=== PATIENT | female | born 1965 | race Caucasian/White ===

== ENCOUNTER 2017-08-03 06:28 | Day surgery (SDC) | payer BC, OTHER ==
[2017-08-01 12:11] VITALS: BMI 24.2
[2017-08-03] MEDS ORDERED: ONDANSETRON 4 MG/2 ML VIAL ONE ×2 (06:44→08:43)
[2017-08-03] MEDS ORDERED: KETOROLAC TROMETHAMINE 30 MG/1 ML VIAL ONE ×2 (06:44→08:43)
[2017-08-03] MEDS ORDERED: SUCCINYLCHOLINE CHLORIDE 200 MG/10 ML VIAL ONE (06:44)
[2017-08-03] MEDS ORDERED: LIDOCAINE HCL/PF 2% SDV 5ML VIAL ONE ×2 (06:44→08:43)
[2017-08-03] MEDS ORDERED: DEXAMETHASONE SOD PHOSPHATE 4 MG/1 ML VIAL ONE ×2 (06:44→08:43)
[2017-08-03] MEDS ORDERED: ROCURONIUM BROMIDE 50 MG/5 ML VIAL ONE ×3 (06:44→08:43)
[2017-08-03] MEDS ORDERED: oxyCODONE HCL 5 MG TABLET PO PRN ×2 (07:19)
[2017-08-03] MEDS ORDERED: ONDANSETRON 4 MG/2 ML VIAL IVPUSH PRN ×2 (07:19→11:07)
[2017-08-03] MEDS ORDERED: LACTATED RINGERS SOLUTION 1,000 ML IV SCH ×2 (07:30→11:15)
[2017-08-03] MEDS ORDERED: ceFAZolin SODIUM 1 GM VIAL ONE (07:44)
[2017-08-03] MEDS ORDERED: GENTAMICIN SO4 80 MG/2 ML VIAL ONE ×2 (07:44→08:01)
[2017-08-03] MEDS ORDERED: VANCOMYCIN 1,000 MG VIAL (RESTRICTED TO ID ONLY) ONE (07:44)
[2017-08-03] MEDS ORDERED: BUPIVACAINE HCL/EPINEPHRINE/PF 30 ML VIAL IJ ONE (07:45)
[2017-08-03] MEDS ORDERED: LIDOCAINE HCL 1%, 10 MG/ML (20ML VIAL) ONE (07:45)
[2017-08-03] MEDS ORDERED: EPINEPHrine/PF 1 MG/1 ML (1:1,000) AMPULE ONE ×2 (07:46→08:02)
[2017-08-03] MEDS ORDERED: SODIUM CHLORIDE 0.9% P/F 10 ML VIAL IJ ONE (07:49)
[2017-08-03] MEDS ORDERED: MIDAZOLAM HCL 2 MG/2 ML SINGLE DOSE VIAL ONE (08:14)
[2017-08-03] MEDS ORDERED: PROPOFOL 20 ML ONE ×3 (08:18→08:28)
[2017-08-03] MEDS ORDERED: NEOSTIGMINE METHYLSULFATE 0.5 MG/ML - 10 ML MDV ONE (08:37)
[2017-08-03] MEDS ORDERED: GLYCOPYRROLATE 0.2 MG/1 ML VIAL ONE (08:37)
[2017-08-03] MEDS ORDERED: BUPIVACAINE 0.25% /EPI 1:200,000 10 ML VIAL NR ONE (08:41)
[2017-08-03] MEDS ORDERED: PHENYLEPHRINE HCL 10 MG/1 ML SINGLE DOSE VIAL ONE ×2 (09:02→10:13)
[2017-08-03] MEDS ORDERED: ePHEDrine SULFATE 50 MG/1 ML AMPULE ONE (09:08)
[2017-08-03] MEDS ORDERED: ACETAMINOPHEN 325 MG TABLET (FP) PO PRN (11:07)
[2017-08-03] MEDS ORDERED: oxyCODONE HCL 5 MG TABLET ONE (12:39)
[2017-08-03] MEDS ORDERED: oxyCODONE HCL 5 MG TABLET PO ONE (12:46)
[2017-08-03 13:32] VITALS: BP 121/74; PULSE 74; TEMP 98.2
--- NOTE | 2017-08-04 15:15 | OP ---
DATE OF OPERATION: 08/03/2017 PREOPERATIVE DIAGNOSES: 1. Personal history of breast cancer. 2. Acquired absence of bilateral breasts and nipples. 3. Bilateral breast/chest wall deformity. 4. Right breast capsular contracture. POSTOPERATIVE DIAGNOSES: 1. Personal history of breast cancer. 2. Acquired absence of bilateral breasts and nipples. 3. Bilateral breast/chest wall deformity. 4. Right breast capsular contracture. PROCEDURES: 1. Removal of right breast implant with open periprosthetic capsulectomy. 2. Immediate insertion of right breast implant (Allergan 410, style LX, 455 mL). 3. Insertion of AlloDerm acellular dermal matrix to right breast inferior pole for soft tissue reinforcement. 4. Subcutaneous tissue transfer from abdomen and bilateral flanks to bilateral breasts/chest wall deformities. ATTENDING SURGEON: Holger Thompson MD ANESTHESIA: General endotracheal. ESTIMATED BLOOD LOSS: 20 mL. SPECIMEN: Right breast capsule to Pathology. DRAINS: None. COMPLICATIONS: None. CONDITION: Stable, to recovery room, extubated. INDICATIONS: The patient is a 51-year-old female with a history of right breast cancer who has previously undergone bilateral skin-sparing mastectomies and implant-based reconstruction. The patient received adjuvant radiation therapy to the right breast and has subsequently developed a capsular contracture. This has progressed and has become painful and therefore the patient is brought to the operating room today for a capsulectomy and implant exchange, as well as subcutaneous tissue transfer to bilateral breasts. The risks, benefits and alternatives of the surgery were discussed with the patient and her in detail and all questions were answered. The risks include, but are not limited to, bleeding, infection, pain, need for revision or further surgery, residual breast asymmetry, damage to neighboring structures including nerves, arteries, veins, and tendons, recurrence of capsular contracture. The patient understands these risks and has elected to proceed with surgery. The procedure is as follows. After proper identification and marking the patient in the preoperative holding area, the patient was transported to the operating room and placed supine on the table. All noninvasive anesthesia monitors were applied. Intravenous access was established. General anesthesia was administered and the patient was intubated without difficulty. SCD boots were applied to bilateral extremities. Intravenous antibiotics were then given. The patient's bilateral breasts, as well as abdomen, and flanks were then prepped and draped in the usual sterile fashion. After a timeout was performed, the inframammary fold marking on the right side was infiltrated with 0.25% Marcaine with 1:200,000 units of epinephrine. The same local anesthetic solution was then infiltrated into the lower end of the umbilicus, as well as along bilateral flanks in preparation for infiltration of tumescent solution. A number-15 blade was used to make stab incisions in the lower end of the umbilicus, as well as along bilateral inguinal regions. The standard tumescent solution was then infiltrated into the subcutaneous tissue of the abdomen and bilateral flanks. A total of 1 L of tumescent solution was infiltrated. While this was given time to take effect, attention was turned toward the right breast. The inframammary fold incision was made with a number-15 blade. This was carried down through the subcutaneous tissue down to the level of the chest wall with electrocautery. The dissection then proceeded superiorly until the lower end of the capsule was encountered. The capsule was noted to be fibrotic and it was incised with electrocautery along the length of the inframammary fold incision and the underlying breast implant was removed. It was noted to be intact and was noted to be a 450-mL, smooth, round silicone implant. Examination of the capsule revealed significant contraction of the lower pole. At this point, Little clamps were placed on the leading edge of the capsule. Electrocautery was used to dissect a plane just on the superficial surface of the capsule and this was continued all the way up to the junction of the previous AlloDerm with the pectoralis major muscle. The entire portion of the calcified capsule was removed and it was passed off the field to Pathology. At this point, a lateral capsulotomy was performed, as well, until the implant pocket was adequately expanded. At this point, the right breast pocket was copiously irrigated with triple-antibiotic solution and hemostasis was ensured. At this point, a Betadine prep kit was applied to the right breast skin and gloves were changed. An Allergan 410, style LX, 455-mL, highly-cohesive, anatomically-shaped, silicon-filled breast implant was opened. It was bathed in triple-antibiotic solution and then was placed into the right breast pocket. Care was taken to ensure proper orientation of the implant. Once this was confirmed, a piece of AlloDerm medium-thick contour was opened. It was bathed in normal saline solution and then was placed in triple-antibiotic solution. The AlloDerm was brought up to the right breast pocket. The inferior skin fold was dissected down to the level of the new inframammary fold based on the contralateral inframammary fold. At this point, a 2-0 Vicryl suture was used in a simple running fashion to secure the inferior edge of the AlloDerm down to the chest wall at the level of the new inframammary fold. Once this was completed, the inferior edge of the implant was brought to the level of the inframammary fold. At this point, the AlloDerm was redraped over the implant and care was taken to ensure all redundancy of the AlloDerm was taken out. At this point, the right breast pocket was irrigated again and hemostasis was again ensured. The right breast skin flap was then redraped and there was noted to be a significant improvement in the right breast shape. The right breast inframammary fold incision was then closed in layers using a 3-0 Monocryl in a buried deep dermal fashion, followed by a 3-0 Monocryl in a running subcutaneous fashion. At this point, the Revolve system was brought onto the field, and it was opened, and it was hooked up to the NewCell suction. A 4-mm liposuction cannula was then used to harvest lipoaspirate from the subcutaneous tissue of the abdomen and bilateral flanks. The lipoaspirate was collected into the Revolve system. It was then processed in the Revolve system and then was washed with Lactated Ringer's. The isolated adipocytes were then loaded into 10-cc syringes in preparation for subcutaneous tissue transfer. At this point, stab incisions were made along bilateral inframammary folds with a number-15 blade. Using a modified Yañez technique, the isolated adipocytes were layered underneath bilateral mastectomy skin flaps. The adipocytes were distributed along the superior, medial, and inferior poles of bilateral breasts. There was noted to be a significant correction in the bilateral breast deformity at the junction of the implants with the chest wall. A total of 120 mL was injected into the left breast and a total of 60 mL was injected into the right breast. Once this was completed, the access incisions both on the breasts as well as the abdomen were closed with 5-0 plain gut in a simple interrupted fashion. At this point, the bilateral breasts were cleansed and the right breast inframammary fold incision was dressed with Mastisol and Steri-Strips. This was followed by sterile fluffs, followed by ABD pads, and a soft surgical bra. The abdomen was dressed with an abdominal binder, and at this point the patient was slowly awakened, and was extubated without incident, and was transported to the recovery room in stable condition. HOLGER THOMPSON M.D. [id number]
--- NOTE | 2017-08-08 15:43 | PATH ---
Surgical Pathology Report Patient Name: TRUNG LUU [facility]. Rec. #: [id number] /Age/Gender: 1965 (Age: 51) / F Account: [id number] Location[facility] Taken: 08/03/2017 Received: 08/03/2017 Reported: 08/08/2017 Physicians: Holger Dee M.D. Specimen(s) Received A: RIGHT BREAST IMPLANT B: RIGHT BREAST CAPSULE Clinical History History of breast cancer Final Diagnosis A. IMPLANT, RIGHT BREAST, REMOVAL: IMPLANT, DESCRIBED (GROSS EXAMINATION ONLY). B. CAPSULE, RIGHT BREAST, CAPSULECTOMY: FIBROUS CAPSULE. Electronically Signed Lisandra Osei M.D. Gross Description A. Received fresh labeled "right breast implant," is a 13 cm in diameter x 4 cm in depth intact, rubbery breast implant. No soft tissue is present. No sections are submitted, gross only. B. Received in formalin labeled "right breast capsule," is a 16.5 x 7.3 x 0.3 cm portion of firm fibrous tissue, consistent with a portion of fibrous capsule. No discrete masses are identified. [employer] sections are submitted in one cassette. /08/06/2017 saudi08/06/2017
== END 2017-08-03 13:30 | disposition home or self-care (01) ==
LOC: FASU 06:28
PROVIDERS: ATTEND Plastic Surgery
PROC: 0HPT0JZ Removal of Synthetic Substitute from Right Breast, Open Approach (ICD-10-PCS; 2017-08-03)
PROC: 0HRT0JZ Replacement of Right Breast with Synthetic Substitute, Open Approach (ICD-10-PCS; 2017-08-03)
PROC: 0HRV07Z Replacement of Bilateral Breast with Autologous Tissue Substitute, Open Approach (ICD-10-PCS; principal; 2017-08-03 08:00)
PROC: 0WU80JZ Supplement Chest Wall with Synthetic Substitute, Open Approach (ICD-10-PCS; 2017-08-03 08:00)
DX: Z85.3 Personal history of malignant neoplasm of breast (principal); Z90.13 Acquired absence of bilateral breasts and nipples; M95.4 Acquired deformity of chest and rib; T85.44XA Capsular contracture of breast implant, initial encounter; Y83.9 Surgical procedure, unspecified as the cause of abnormal reaction of the patient, or of later complication, without mention of misadventure at the time of the procedure; Y92.9 Unspecified place or not applicable
CPT/HCPCS: 88300-TC; 88304-TC; 94760